=== PATIENT | female | born 1990 | race Caucasian/White ===

== ENCOUNTER → 2018-03-04 02:40 | Observation (INO) ==
--- NOTE | 2018-03-04 01:24 | OB/GYN Progress Note ---
Date of Encounter: 03/04/18 Time of Encounter: 01:23 - Assessment and Plan (1) 37 weeks gestation of Current Visit: Yes Status: Acute UDS - pending NST - reactive Vaginosis panel - pending Negative nitrazine, negative fern, negative pooling Discharge home with labor precautions Follow up in office with routine care and PRN (2) Vaginal discharge during in third trimester Current Visit: Yes Status: Acute (3) NST (non-stress test) reactive Current Visit: Yes Status: Acute Subjective - Subjective Principal diagnosis: Leaking of fluid Interval history: Ms Aaron is a at 37 weeks and 5 days that presents to labor and delivery with c/o leaking of fluid x 1 week with sitting up and coughing. She states the fluid is clear and she admits to intercourse 3 days ago. She states her last vaginal delivery was 11 years ago. This has been complicated by subutex use and Hep C. She is seen at [facility] for her care. She states positive movement. She denies headache, vision changes , and epgastric pain. Antepartum ROS: loss of fluid, movement normal, no vaginal bleeding, no contractions Objective - Exam FHR: auscultation normal, category 1 (Baseline 140, reactive NST, no contractions) Abdomen: Present: normal appearance, soft, gravid. Absent: tenderness Uterus: Present: normal. Absent: firm, tenderness Cervical dilation: 2 Cervix effacement: 60 station: high
[2018-03-04 01:36] LABS: Amphetamine Screen,Urine Negative ng/mL (Cutoff=1000); Barbiturate Screen,Urine Negative ng/mL (Cutoff=200); Benzodiazepines Screen,Urine Negative ng/mL (Cutoff=200); Cannabinoid Screen,Urine Negative ng/mL (Cutoff = 50); Cocaine Screen,Urine Negative ng/mL (Cutoff= 300); Opiate Screen,Urine Negative ng/mL (Cutoff=300); Phencyclidine Screen,Urine Negative ng/mL (Cutoff=25)
[2018-03-04 02:24] LABS: Candida DNA Not Detected (Not Detect); Gardnerella DNA ***DETECTED*** (Not Detect); Trichomonas DNA Not Detected (Not Detect)
== END | disposition home or self-care (01) ==
LOC: 1NENULAB
PROVIDERS: ADMIT Advanced Practice Midwife; ATTEND Advanced Practice Midwife

== ENCOUNTER 2020-07-06 08:00 | Inpatient (IN) ==
[2020-07-06] MEDS ORDERED: Lidocaine 1% 20 ML MDV INFILT PRN (08:56)
[2020-07-06] MEDS ORDERED: Metoclopramide 10 MG/2 ML VIAL IVP PRN (08:56)
[2020-07-06] MEDS ORDERED: Famotidine 20 MG/2 ML VIAL IVP PRN (08:56)
[2020-07-06] MEDS ORDERED: Ondansetron 4 MG/2 ML VIAL IVP PRN (08:56)
[2020-07-06] MEDS ORDERED: Azithromycin 500 MG in 0.9 % Sodium Chloride 250 ML IVPB PRN (08:56)
[2020-07-06] MEDS ORDERED: Naloxone 0.4 MG/ML INJ IVP PRN (08:56)
[2020-07-06] MEDS ORDERED: Ringers Solution, Lactated 1,000 ML IVC SCH (09:00)
[2020-07-06] MEDS ORDERED: Oxytocin 20 units/ LR 1000 mL 20 UNIT/1,000 ML BAG IVC SCH ×2 (09:00→18:39)
[2020-07-06] MEDS ORDERED: *HR* FentaNYL (PF) 100 MCG/2 ML VIAL EP ONE (09:58)
[2020-07-06] MEDS ORDERED: EPHEDrine 50 MG/ML VIAL IVP PRN (09:58)
[2020-07-06] MEDS ORDERED: Epidural Premix (fent/bupiv) 110 ML EP SCH (10:00)
[2020-07-06] MEDS ORDERED: *HR* FentaNYL (PF) 100 MCG/2 ML VIAL ONE (10:03)
[2020-07-06] MEDS ORDERED: *HR* FentaNYL (PF) 100 MCG/2 ML VIAL IVP PRN (10:34)
[2020-07-06 10:47] LABS: Basophils % 0.3 %; Eosinophils # 0.2 K/mcL (0.0-0.6); Eosinophils % 1.3 %; Hematocrit 33.6 % (35.3-44.9); Immature Granulocytes % 0.4 % (0-4); Lymphocytes # 1.6 K/mcL (0.6-4.6); Lymphocytes % 13.7 %; Mean Corpuscular HGB Conc 32.7 g/dL (31.6-35.5); Mean Corpuscular Volume 91.6 fL (83.0-100.0); Mean Platelet Volume 12.1 fL (9.4-12.4); Monocytes # 0.7 K/mcL (0.0-1.3); Monocytes % 5.4 %; Neutrophils # 9.4 K/mcL (1.6-8.9); Platelet Count 130 K/mcL (140-400); Red Blood Count 3.67 M/mcL (3.82-4.97); Red Cell Distribution Width 12.9 % (11.5-14.5); Segmented Neutrophils % 78.9 %; White Blood Count 11.9 K/mcL (4.3-11.1)
[2020-07-06 11:02] LABS: Amphetamine Screen,Urine Negative ng/mL (Cutoff=1000); Barbiturate Screen,Urine Negative ng/mL (Cutoff=200); Benzodiazepines Screen,Urine Negative ng/mL (Cutoff=200); Cannabinoid Screen,Urine Negative ng/mL (Cutoff = 50); Cocaine Screen,Urine Negative ng/mL (Cutoff= 300); Opiate Screen,Urine Negative ng/mL (Cutoff=300); Phencyclidine Screen,Urine Negative ng/mL (Cutoff=25)
[2020-07-06] MEDS ORDERED: Measles/Mumps/Rubella Vacc 0.5 ML VIAL SQ PRN (18:39)
[2020-07-06] MEDS ORDERED: Rho Immune Globulin 1,500 UNIT SYRINGE IM PRN (18:39)
[2020-07-06] MEDS ORDERED: Acetaminophen 325 MG TABLET PO PRN (18:39)
[2020-07-06] MEDS ORDERED: Oxytocin 20 units/ LR 1000 mL 20 UNIT/1,000 ML BAG IVC ONE (18:39)
[2020-07-06] MEDS ORDERED: Benzocaine/Menthol 56 GM AEROSOL SPRAY TP PRN (18:39)
[2020-07-06] MEDS: Ibuprofen 600 MG TABLET PO PRN (21:33)
[2020-07-07 06:30] LABS: Basophils % 0.3 %; Eosinophils # 0.2 K/mcL (0.0-0.6); Eosinophils % 1.6 %; Hemoglobin 9.9 g/dL (11.5-15.4); Immature Granulocytes % 0.7 % (0-4); Lymphocytes # 1.8 K/mcL (0.6-4.6); Lymphocytes % 16.1 %; Mean Corpuscular HGB Conc 30.9 g/dL (31.6-35.5); Mean Corpuscular Hemoglobin 28.4 pg (28.0-33.3); Mean Platelet Volume 12.2 fL (9.4-12.4); Monocytes # 0.7 K/mcL (0.0-1.3); Neutrophils # 8.2 K/mcL (1.6-8.9); Platelet Count 119 K/mcL (140-400); Red Blood Count 3.48 M/mcL (3.82-4.97); Red Cell Distribution Width 13.1 % (11.5-14.5); Segmented Neutrophils % 75.3 %; White Blood Count 10.9 K/mcL (4.3-11.1)
[2020-07-07] MEDS: Prenatal Vit/FA 1 EACH TABLET PO SCH (08:00)
[2020-07-07] MEDS: *HR* Buprenorphine HCl 8 MG TAB.SUBL SL SCH (08:00)
[2020-07-07] MEDS: Ibuprofen 600 MG TABLET PO PRN (23:16)
[2020-07-08] MEDS: *HR* Buprenorphine HCl 8 MG TAB.SUBL SL SCH (12:56)
[2020-07-08] MEDS: Prenatal Vit/FA 1 EACH TABLET PO SCH (14:08)
[2020-07-08] MEDS: Ibuprofen 600 MG TABLET PO PRN (22:53)
[2020-07-09] MEDS: *HR* Buprenorphine HCl 8 MG TAB.SUBL SL SCH (08:07)
[2020-07-09] MEDS: Prenatal Vit/FA 1 EACH TABLET PO SCH (08:07)
[2020-07-10 08:03] VITALS: BP 127/82
[2020-07-10] MEDS: *HR* Buprenorphine HCl 8 MG TAB.SUBL SL SCH (08:29)
[2020-07-10] MEDS: Prenatal Vit/FA 1 EACH TABLET PO SCH (08:29)
== END 2020-07-10 10:52 | disposition home or self-care (01) | DRG 560 ==
LOC: 1NENULAB 08:02 → 1NENUOBS 18:08
PROVIDERS: ADMIT Student in an Organized Health Care Education/Training Program; ATTEND Student in an Organized Health Care Education/Training Program

== ENCOUNTER 2021-08-02 00:31 | Inpatient (IN) ==
[2021-08-02] MEDS ORDERED: Metoclopramide 10 MG/2 ML VIAL IVP PRN (01:12)
[2021-08-02] MEDS ORDERED: Naloxone 0.4 MG/ML INJ IVP PRN (01:12)
[2021-08-02] MEDS ORDERED: Famotidine 20 MG/2 ML VIAL IVP PRN (01:12)
[2021-08-02 02:21] LABS: Influenza A PCR Negative (Negative); Influenza B PCR Negative (Negative); Resp. Syncytial Virus PCR Negative (Negative); SARS-CoV-2 by PCR (In House) Negative (Negative)
[2021-08-02] MEDS ORDERED: Penicillin G Potassium 5,000,000 UNIT in 0.9 % Sodium Chloride Mini Bag 100 ML IVPB ONE (03:12)
[2021-08-02] MEDS ORDERED: Oxytocin 20 units/ LR 1000 mL 20 UNIT/1,000 ML BAG IVC SCH ×2 (03:15→07:05)
[2021-08-02 03:18] LABS: Amphetamine Screen,Urine Positive ng/mL (Cutoff=1000); Barbiturate Screen,Urine Negative ng/mL (Cutoff=200); Benzodiazepines Screen,Urine Negative ng/mL (Cutoff=200); Cannabinoid Screen,Urine Negative ng/mL (Cutoff = 50); Cocaine Screen,Urine Negative ng/mL (Cutoff= 300); Opiate Screen,Urine Negative ng/mL (Cutoff=300); Phencyclidine Screen,Urine Negative ng/mL (Cutoff=25)
[2021-08-02] MEDS ORDERED: Ringers Solution, Lactated 1,000 ML ONE (03:37)
[2021-08-02 06:11] LABS: Basophils % 0.2 %; Eosinophils # 0.1 K/mcL (0.0-0.6); Eosinophils % 1.1 %; Hematocrit 31.2 % (35.3-44.9); Immature Granulocytes % 0.5 % (0-4); Lymphocytes # 1.3 K/mcL (0.6-4.6); Lymphocytes % 10.6 %; Mean Corpuscular HGB Conc 32.1 g/dL (31.6-35.5); Mean Corpuscular Hemoglobin 29.2 pg (28.0-33.3); Mean Platelet Volume 10.6 fL (9.4-12.4); Monocytes # 0.6 K/mcL (0.0-1.3); Monocytes % 4.7 %; Neutrophils # 10.4 K/mcL (1.6-8.9); Platelet Count 150 K/mcL (140-400); Red Blood Count 3.43 M/mcL (3.82-4.97); Red Cell Distribution Width 12.8 % (11.5-14.5); Segmented Neutrophils % 82.9 %; White Blood Count 12.5 K/mcL (4.3-11.1)
[2021-08-02] MEDS ORDERED: Measles/Mumps/Rubella Vacc 0.5 ML VIAL SQ PRN (07:05)
[2021-08-02] MEDS ORDERED: Lanolin 7 G OINT...G. TP PRN (07:05)
[2021-08-02] MEDS ORDERED: Benzocaine/Menthol 56 GM AEROSOL SPRAY TP PRN (07:05)
[2021-08-02] MEDS ORDERED: Ondansetron ODT 4 MG TAB.RAPDIS SL PRN (07:05)
[2021-08-02] MEDS ORDERED: Penicillin G Potassium 2,500,000 UNIT/105 ML MLS IVPB SCH (07:30)
[2021-08-02 07:44] LABS: HIV-1&2 Antibody & p24 Ag Nonreactive (Nonreactive)
[2021-08-02] MEDS ORDERED: *HR* Oxytocin 10 UNIT/ML VIAL IM ONE (08:59)
[2021-08-02] MEDS ORDERED: MULTIVITAMIN PO SCH (09:00)
[2021-08-02 09:02] LABS: Hepatitis B Surface Antigen Nonreactive (Nonreactive)
[2021-08-02] MEDS: Prenatal Vit/FA 1 EACH TABLET PO SCH (10:09)
[2021-08-02] MEDS: Ibuprofen 600 MG TABLET PO SCH ×2 (10:10→23:39)
[2021-08-02] MEDS: *HR* Buprenorphine HCl 8 MG TAB.SUBL SL SCH (10:10)
[2021-08-02] MEDS: Acetaminophen 325 MG TABLET PO SCH ×2 (10:10→23:40)
[2021-08-02 10:12] LABS: Varicella Zoster IgG Antibody Positive
[2021-08-02 10:13] LABS: Rubella IgG Antibody POSITIVE (POSITIVE)
[2021-08-02] MEDS ORDERED: Benzocaine 20% 12 APPL GEL..GRAM. TP PRN (23:26)
[2021-08-03 07:36] VITALS: BP 109/68; PULSE 71; TEMP 97.9; O2SAT 99
[2021-08-03] MEDS: *HR* Buprenorphine HCl 8 MG TAB.SUBL SL SCH (08:32)
[2021-08-03] MEDS: Prenatal Vit/FA 1 EACH TABLET PO SCH (08:32)
== END 2021-08-03 09:00 | disposition home or self-care (01) | DRG 560 ==
LOC: 1NENULAB → OBSVTOIN 00:31 → 1NENULAB 03:25 → 1NENUOBS 07:52
PROVIDERS: ADMIT Registered Nurse; ATTEND Registered Nurse